=== PATIENT | female | born 1975 | race Caucasian/White ===

== ENCOUNTER → 2018-03-09 | Outpatient (CLI) | payer BC ==
[~2018-03-09] MED LIST: Z.0.DULERA 100 MCG/1; Z.1.ATENOLOL-CHLOR1
== END ==
LOC: MAMMO 13:48
PROVIDERS: ATTEND Internal Medicine
DX: Z12.31 Encounter for screening mammogram for malignant neoplasm of breast (principal)
CPT/HCPCS: 77067

== ENCOUNTER → 2018-04-08 | Outpatient (CLI) | payer BC ==
--- NOTE | 2018-04-08 18:07 | Diagnostic Imaging Report ---
#[id number] - [id number] #BILATERAL DIGITAL DIAGNOSTIC MAMMOGRAM WITH SPOT COMPRESSION: 04/08/2018 Comparison is made to exam dated: 03/09/2018 mammogram - [facility]. Current study contains 5 films. Focal spot compression of areas of asymmetry in both breasts was performed. The tissue of both breasts is heterogeneously dense. This may lower the sensitivity of mammography. The areas in question appear to press out and therefore must have represented overlapping breast tissue. No significant masses, calcifications, or other findings are seen in either breast. There has been no significant interval change. IMPRESSION: BENIGN There is no mammographic evidence of malignancy. A 1 year screening mammogram is recommended. The patient will be notified by letter of the results. Jonathan Lira Jr., D.O. cw/:04/08/2018 15:45:24 Sales Office Administrator: Sarahy KEEN(Juan Miguel)(M), [facility] letter sent: Compared to Prior B9 Mammogram BI-RADS: 2 Benign
== END ==
LOC: MAMMO 12:07
PROVIDERS: ATTEND Internal Medicine
DX: N64.89 Other specified disorders of breast (principal)
CPT/HCPCS: 77066